=== PATIENT | male | born 1960 | race Caucasian/White ===

== ENCOUNTER 2018-04-19 10:17 | Emergency (ER) | payer OTHER, BC ==
--- NOTE | 2018-04-19 13:14 | RADIOLOGY REPORT (SQ) ---
EXAM DESCRIPTION: FOREARM LEFT COMPLETED DATE/TIME: 04/19/2018 1:03 pm REASON FOR STUDY: pain hand to elbow after trauma combo films COMPARISON: None. NUMBER OF VIEWS: Two views. TECHNIQUE: Two radiographic images acquired of the left forearm, including elbow and wrist in at [address] one projection. LIMITATIONS: None. FINDINGS: MINERALIZATION: Normal. BONES: No acute fracture. radial head dislocation. Chronic distal ulnar fracture. SOFT TISSUES: No obvious swelling or foreign body. OTHER: No other significant finding. IMPRESSION: No acute fracture. Radial head dislocation. Question acute versus chronic. TECHNICAL DOCUMENTATION: JOB ID: [id number] [employer]- All Rights Reserved Reading location - IP/workstation name: [email or web address]
--- NOTE | 2018-04-19 13:14 | RADIOLOGY REPORT (SQ) ---
EXAM DESCRIPTION: ELBOW LEFT OVER 2 VIEWS COMPLETED DATE/TIME: 04/19/2018 1:03 pm REASON FOR STUDY: pain hand to elbow after trauma combo films COMPARISON: None. NUMBER OF VIEWS: Four views. TECHNIQUE: AP, lateral, and both oblique radiographic images acquired of the left elbow. LIMITATIONS: None. FINDINGS: MINERALIZATION: Normal. BONES: There is dislocation of the radial head. No fracture is seen. JOINT: No effusion. SOFT TISSUES: No soft tissue swelling. No foreign body. OTHER: No other significant finding. IMPRESSION: Dislocation of the radial head. TECHNICAL DOCUMENTATION: JOB ID: [id number] [employer]- All Rights Reserved Reading location - IP/workstation name: [email or web address]
--- NOTE | 2018-04-19 13:15 | RADIOLOGY REPORT (SQ) ---
EXAM DESCRIPTION: HAND LEFT 3 VIEWS COMPLETED DATE/TIME: 04/19/2018 1:03 pm REASON FOR STUDY: pain hand to elbow after trauma combo films COMPARISON: None. EXAM PARAMETERS: NUMBER OF VIEWS: Three views. TECHNIQUE: AP, lateral and oblique radiographic images acquired of the left hand. LIMITATIONS: None. FINDINGS: MINERALIZATION: Normal. BONES: No acute fracture or dislocation. No worrisome bone lesions. JOINTS: Degenerative changes in the 1st carpometacarpal joint. Mild degenerative joint changes in th e 1st metacarpophalangeal joint. SOFT TISSUES: No soft tissue swelling. No foreign body. OTHER: No other significant finding. IMPRESSION: Degenerative joint changes. No acute abnormality. TECHNICAL DOCUMENTATION: JOB ID: [id number] [employer]- All Rights Reserved Reading location - IP/workstation name: [email or web address]
--- NOTE | 2018-04-19 15:39 | RADIOLOGY REPORT (SQ) ---
EXAM DESCRIPTION: ELBOW LEFT OVER 2 VIEWS COMPLETED DATE/TIME: 04/19/2018 3:17 pm REASON FOR STUDY: eval possible rad head reduction COMPARISON: 04/19/2018 NUMBER OF VIEWS: Three views. TECHNIQUE: AP lateral oblique radiographic images acquired of the left elbow. LIMITATIONS: None. FINDINGS: MINERALIZATION: Normal. BONES: Persistent dislocation of the radial head which is possibly chronic. Degenerative changes of the radial head. No acute fracture. JOINT: No effusion. SOFT TISSUES: No soft tissue swelling. No foreign body. OTHER: No other significant finding. IMPRESSION: Persistent dislocation of the radial head which is possibly chronic. TECHNICAL DOCUMENTATION: JOB ID: [id number] [employer]- All Rights Reserved Reading location - IP/workstation name: [email or web address]
--- NOTE | 2018-04-19 15:44 | ER Document Report ---
ED General - General Chief Complaint: Arm Pain Stated Complaint: HAND INJURY Time Seen by Provider: 04/19/18 12:01 TRAVEL OUTSIDE OF THE [place] IN LAST 30 DAYS: No - HPI Patient complains to provider of: Left arm pain Notes: Patient works for the [employer] number when he fell landing on the left forearm patient coming in stating decrease in extension and flexion of the arm and elbow along with pain from the elbow to the hand also decreased supination pronation. Denies any other injuries loss consciousness patient resting comfortably upon my evaluation no signs of any overt deformities - Related Data Allergies/Adverse Reactions: No Known Drug Allergies Allergy (Verified 04/19/18 10:20) Past Medical History - Social History Smoking Status: Never Smoker Chew tobacco use (# tins/day): No Frequency of alcohol use: None Drug Abuse: None Family History: Reviewed & Not Pertinent Patient has suicidal ideation: No Patient has homicidal ideation: No Pulmonary Medical History: Reports: Hx Asthma - seasonal Renal/ Medical History: Denies: Hx Peritoneal Dialysis - Immunizations Hx Diphtheria, Pertussis, Tetanus Vaccination: Yes Review of Systems - Review of Systems Constitutional: No symptoms reported EENT: No symptoms reported Cardiovascular: No symptoms reported Respiratory: No symptoms reported Gastrointestinal: No symptoms reported Genitourinary: No symptoms reported Male Genitourinary: No symptoms reported Musculoskeletal: Other Skin: No symptoms reported Hematologic/Lymphatic: No symptoms reported Neurological/Psychological: No symptoms reported -: Yes All other systems reviewed and negative Physical Exam - Vital signs Vitals: Temp Pulse Resp BP Pulse Ox 98.2 F 81 16 129/71 H 97 04/19/18 11:02 04/19/18 11:02 04/19/18 11:02 04/19/18 11:02 04/19/18 11:02 Interpretation: Normal - General General appearance: Appears well, Alert - HEENT Head: Normocephalic, Atraumatic Eyes: Normal Pupils: PERRL - Respiratory Respiratory status: No respiratory distress Chest status: Nontender Breath sounds: Normal Chest palpation: Normal - Cardiovascular Rhythm: Regular Heart sounds: Normal auscultation Murmur: No - Abdominal Inspection: Normal Distension: No distension Bowel sounds: Normal Tenderness: Nontender Organomegaly: No organomegaly - Back Back: Normal, Nontender - Extremities General upper extremity: Nontender, Normal color, Normal temperature, Other - Patient with decreased range of motion of the left arm at the elbow painful flexion and extension along with painful supination pronation.. No: Normal inspection, Normal ROM General lower extremity: Normal inspection, Nontender, Normal color, Normal ROM , Normal temperature, Normal weight bearing. No: Abel's sign - Neurological Neuro grossly intact: Yes Cognition: Normal Orientation: AAOx4 [place] Coma Scale Eye Opening: Spontaneous [place] Coma Scale Verbal: Oriented [place] Coma Scale Motor: Obeys Commands [place] Coma Scale Total: 15 Speech: Normal Motor strength normal: LUE, RUE, LLE, RLE Sensory: Normal - Psychological Associated symptoms: Normal affect, Normal mood - Skin Skin Temperature: Warm Skin Moisture: Dry Skin Color: Normal Course - Re-evaluation Re-evalutation: 04/19/18 20:32 Patient's x-ray showed a dislocation of the radial head discussed relocating the radial head with the patient no pain medication IV pain medication versus conscious sedation patient stated a rather go no pain medication is that he has no way to get home at the drop himself. Patient in gentle traction along with active flexion along with supination of the arm a pop was felt patient had increased range of motion however stable still painful. 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 patient was placed in a sling upon evaluation evaluation is to follow-up in his clinic in the next week where it was given for 2 weeks off patient was discharged home pain control with Tylenol Motrin - Vital Signs Vital signs: Temp Pulse Resp BP Pulse Ox 97.6 F 70 16 127/79 H 98 04/19/18 17:09 04/19/18 17:09 04/19/18 17:09 04/19/18 17:09 04/19/18 17:09 Discharge - Discharge Clinical Impression: chronic right radial head dislocation Subluxation of right radial head Qualifiers: Encounter type: initial encounter Qualified Code(s): S53.001A - Unspecified subluxation of right radial head, initial encounter Condition: Good Disposition: HOME, SELF-CARE Additional Instructions: Your x-ray today shows a chronic radial head dislocation of the right elbow whenever he fell the radial head moved just a little bit causing it to sublux decreasing the range of motion of your right arm and more likely spraining the muscle ligaments around her elbow. I have asked her case with her orthopedic doctor recommends no work for the next 2 weeks follow-up in his office in 1 week. Continue take Tylenol Motrin for pain control. Return to ER for any worsening symptoms. Wear the sling as needed for comfort Prescriptions: Ibuprofen [Motrin 600 mg Tablet] 600 mg PO Q8HP PRN #21 tablet PRN Reason: Forms: Return to Work Referrals: MALINDA CAMPBELL FNP [Primary Care Provider] - Follow up as needed GIGI TAVERAS MD [ACTIVE STAFF] - Follow up as needed (Call tomorrow for follow-up appointment)
--- NOTE | 2018-04-19 16:57 | RADIOLOGY REPORT (SQ) ---
EXAM DESCRIPTION: ELBOW RIGHT OVER 2 VIEWS COMPLETED DATE/TIME: 04/19/2018 4:40 pm REASON FOR STUDY: Eval possible congenital radial head dislocation COMPARISON: Left elbow NUMBER OF VIEWS: Four views. TECHNIQUE: AP, lateral, and both oblique radiographic images acquired of the right elbow. LIMITATIONS: None. FINDINGS: MINERALIZATION: Normal. BONES: Chronic radial head dislocation with osteophytes. JOINT: No effusion. SOFT TISSUES: No soft tissue swelling. No foreign body. OTHER: No other significant finding. IMPRESSION: Chronic bilateral radial head dislocations with osteophytes. TECHNICAL DOCUMENTATION: JOB ID: [id number] [employer]- All Rights Reserved Reading location - IP/workstation name: [email or web address]
[2018-04-19 17:11] VITALS: BP 127/79
== END 2018-04-19 17:11 | disposition home or self-care (01) ==
LOC: ER 10:17
DX: S53.001A Unspecified subluxation of right radial head, initial encounter (principal); W01.0XXA Fall on same level from slipping, tripping and stumbling without subsequent striking against object, initial encounter
CPT/HCPCS: 99283